=== PATIENT | female | born 1940 | race Caucasian/White ===

== ENCOUNTER → 2018-11-17 | Outpatient (REF) | payer MEDICARE ==
[2018-11-17 11:44] LABS: HEMATOCRIT 43.4 % (37.0-47.0); HEMOGLOBIN 14.2 g/dl (12.0-16.0); IMMATURE GRANULOCYTES 1.4 % (0.0-5.0); MEAN CORPUSCULAR HGB 31.1 pG CALC (26.0-32.0); MEAN CORPUSCULAR HGB CONC 32.7 g/L CALC (32.0-36.0); NEUT# 9.18 thou/uL (2.00-7.15); RED BLOOD COUNT 4.57 mill/uL (4.20-5.60); RED CELL DISTRI WIDTH 12.9 % (11.5-15.5)
[2018-11-17 12:19] LABS: ALBUMIN 3.9 g/dL (3.2-5.0); ALKALINE PHOSPHATASE 62 u/l (38-126); ANION GAP 14 (6-22 (CALC)); BILIRUBIN, TOTAL 0.6 mg/dL (0.0-1.4); BUN 22 mg/dL (8-23); BUN/CREATININE RATIO 31 (12-20 (CALC)); CARBON DIOXIDE 26 mmol/l (22-30); CHLORIDE 102 mmol/l (95-108); CREATININE 0.7 mg/dL (0.5-1.0); GFR > 60 ML/MIN (>=60 (CALC)); GFR FOR AFR.AMER. > 60 ML/MIN (>=60 (CALC)); POTASSIUM 4.1 mmol/l (3.5-5.1); SGOT/AST 15 u/l (9-36); SODIUM 137 mmol/l (137-146); TOTAL PROTEIN 6.8 g/dL (6.3-8.2)
== END | disposition home or self-care (01) ==
LOC: LAB 11:11
PROVIDERS: ATTEND Internal Medicine
DX: J30.89 Other allergic rhinitis (principal)

== ENCOUNTER 2020-02-06 11:52 | Observation (INO) | payer MEDICARE ==
[~2020-02-06] VITALS: Ht 162.6 cm; Wt 112.0 kg
--- NOTE | 2020-02-06 12:20 | NUR ---
MOVED TO STRETCHER USING SHEET. PT REPORTS PAIN IN LOWER BACK AND RIGHT LEG RESULTING IN UNABLE TO WALK TO CAR TODAY. PT ASSISTED TO GROUND BY FAMILY AND EMS CALLED. PT CHANGED TO GOWN. MONITORS IN PLACE. PT AO X 3. SKIN PINK WARM AND DRY. MOVES ALL EXTREMITIES.
--- NOTE | 2020-02-06 12:31 | NUR ---
PT MEDICATED FOR PAIN. TAKEN VIA STRETCHER TO XRAY
[2020-02-06 12:39] LABS: HEMOGLOBIN 12.3 g/dl (12.0-16.0); IMMATURE GRANULOCYTES 0.2 % (0.0-5.0); MEAN CELL VOLUME 97.1 fL CALC (80.0-100.0); MEAN CORPUSCULAR HGB 32.5 pG CALC (26.0-32.0); MEAN CORPUSCULAR HGB CONC 33.4 g/dL CAL (32.0-36.0); NEUT# 3.25 thou/uL (2.00-7.15); RED BLOOD COUNT 3.79 mill/uL (4.20-5.60); RED CELL DISTRI WIDTH 13.1 % (11.5-15.5)
--- NOTE | 2020-02-06 12:54 | NUR ---
PT RETURNED FROM XRAY. RESTING ON STOMACH IN POSITION OF COMFORT.
[2020-02-06 13:02] LABS: ANION GAP 9 (6-22 (CALC)); BUN 18 mg/dL (8-23); BUN/CREATININE RATIO 26 (12-20 (CALC)); CARBON DIOXIDE 29 mmol/l (22-30); CHLORIDE 104 mmol/l (95-108); CREATININE 0.7 mg/dL (0.5-1.0); GFR > 60 ML/MIN (>=60 (CALC)); GFR FOR AFR.AMER. > 60 ML/MIN (>=60 (CALC)); POTASSIUM 3.7 mmol/l (3.5-5.1); SODIUM 138 mmol/l (137-146)
[2020-02-06 13:10] LABS: HEMATOCRIT 36.8 % (37.0-47.0)
--- NOTE | 2020-02-06 13:56 | NUR ---
PT COMPLETELY MISSED BEDPAN. UNABLE TO OBTAIN URINE SPECIMEN
--- NOTE | 2020-02-06 14:49 | NUR ---
STRAIGHT CATH PERFORMED WITH STERILE TECHNIQUE. TOLERATED WELL. URINE SPECIMEN OBTAINED.
[2020-02-06] MEDS ORDERED: CITALOPRAM40 MG PO (15:00)
[2020-02-06] MEDS ORDERED: OXYBUTYNIN CHLO15 MG PO (15:00)
[2020-02-06 15:02] LABS: URINE BILIRUBIN - DIPSTICK NEGATIVE (NEGATIVE); URINE BLOOD DIPSTICK MODERATE (NEGATIVE); URINE COLOR YELLOW; URINE GLUCOSE - DIPSTICK NEGATIVE (NEGATIVE); URINE KETONE NEGATIVE (NEGATIVE); URINE LEUK ESTERASE NEGATIVE (NEGATIVE); URINE NITRITE - DIPSTICK NEGATIVE (Negative); URINE PH 7.5 (4.5-8.0); URINE PROTEIN - DIPSTICK NEGATIVE (NEG-TRACE); URINE SPECIFIC GRAVITY 1.015
[2020-02-06] MEDS ORDERED: [UNRECOGNIZED DRUG - OTHER] PO (15:02)
[2020-02-06] MEDS ORDERED: LEVOTHYROXINE PO (15:02)
[2020-02-06] MEDS ORDERED: KETOCONAZOLE2 % EX (15:03)
[2020-02-06] MEDS ORDERED: ADVAIR DISK1 INH (15:03)
[2020-02-06] MEDS ORDERED: METOPRL/HCTZ1 TA1 PO (15:04)
[2020-02-06] MEDS ORDERED: TAMOXIFEN CITRA20 MG PO (15:04)
[2020-02-06 15:10] LABS: URINE SQUAMOUS EPITHELIAL CELL FEW EPI/hpf (0-FEW); URINE WBC 0-2 WBC/hpf (0-5)
--- NOTE | 2020-02-06 15:41 | NUR ---
PT ATTEMPTED TO STAND WITH THREE PERSON ASSIST. PT UNABLE TO BEAR WEIGHT ON RIGHT LEG. RETURNED TO STRETCHER. POSITIONED FOR COMFORT
--- NOTE | 2020-02-06 16:45 | NUR ---
PT RESTING ON STRETCHER AWAITING ADMISSION
--- NOTE | 2020-02-06 17:52 | NUR ---
PT GIVEN DINNER TRAY
--- NOTE | 2020-02-06 18:45 | NUR ---
MED SURG UNABLE TO TAKE REPORT AT THIS TIME
--- NOTE | 2020-02-06 19:00 | NUR ---
REPORT GIVEN TO CERTIFIED OPHTHALMIC SURGICAL ASSISTANT
--- NOTE | 2020-02-06 19:15 | NUR ---
PT. TAKEN TO MO FLOOR VIA STRETCHER, NO C/O.
--- NOTE | 2020-02-06 19:28 | NUR ---
ADMISSION ASSESSMENT COMPLETED. NO DISTRESS NOTED; RESP. EVEN AND UNLABORED. EDUCATED NEONATAL CRITICAL CARE NURSE LIGHT, POC, AND ROOM; VERBALIZES UNDERSTANDING. PT. DENIES NEEDS FOR PAIN MEDICATION AT THIS TIME. BRUISING NOTED TO LEFT BUTTOCK AND LOWER BACK; SKIN INTACT. GOWN CHANGED AND CARLY CARE PROVIDED.PUREWIC PLACED AT THIS TIME. SCD'S APPLIED TO BLE. ENCOURAGED TO CALL FOR ANY NEEDS. CALL LIGHT IS IN REACH. WILL CONTINUE TO MONITOR.
[2020-02-06 19:50] VITALS: BP 105/54
--- NOTE | 2020-02-06 21:29 | NUR ---
PT. C/O RIGHT HIP/LOWER BACK PAIN 03/09 AND MEDICATED WITH ORDERED LORTAB, WILL REASSESS. PO FLUIDS OFFERED. CALL LIGHT IS IN REACH.
--- NOTE | 2020-02-07 | NUR ---
RESTING IN BED WITH NO DISTRESS NOTED. DENIES NEEDS/PAIN. ENCOURAGED TO CALL FOR ANY NEEDS. CALL LIGHT IS IN REACH.
[2020-02-07 04:00] VITALS: BP 124/55
--- NOTE | 2020-02-07 05:05 | NUR ---
RESTING IN BED WITH NO DISTRESS NOTED; DENIES NEEDS/PAIN. ENCOURAGED TO CALL FOR ANY NEEDS.
[2020-02-07 08:00] VITALS: BP 121/67
--- NOTE | 2020-02-07 09:00 | NUR ---
PT IS AWAKE, ALERT, ORIENTED X 3. LUNGS CLEAR, RA. PAIN TO LOWER BACK, MEDICATED FOR SAME. PT IN NO DISTRESS, OFFERS NO COMPLAINTS.
--- NOTE | 2020-02-07 13:00 | NUR ---
PT SEEN BY DR CROFT AND MONICA KOLB THIS MORNING, MRI HAS BEEN ORDERED OF LOWER BACK FOR FURTHER EVALUATION OF PAIN SOURCE.
--- NOTE | 2020-02-07 15:14 | NUR ---
Attempted eval - patient has gone to MRI We will attempt again this PM or in AM
[2020-02-07 16:19] VITALS: BP 148/99
--- NOTE | 2020-02-07 17:15 | NUR ---
PT WITH PHYSICAL THERAPY WAS ABLE TO STAND, TOLERATED WITH MODERATE DISCOMFORT. IV FOUND DISLODGED, RESTARTED. ZOFRAN PROVIDED FOR RELIEF OF NAUSEA. AT BEDSIDE.
[2020-02-07 18:58] VITALS: BP 112/74
--- NOTE | 2020-02-07 19:53 | NUR ---
ASSESSMENT COMPLETED. IV SITE PATENT AND SL. PT. CONTINUES TO C/O NAUSEA. HAS SEEN EKG OBTAINED AND NEW ORDERS RECEIVED FOR ONE TIME COMPAZINE, WILL ADMINISTER. SCD'S TO BLE. DENIES NEEDS FOR PAIN MEDS AT THIS TIME. DECLINES ADVAIR INHALOR. ENCOURAGED TO CALL FOR ANY NEEDS.
--- NOTE | 2020-02-08 | NUR ---
PT. RESTING IN BED WITH EYES CLOSED AND AROUSES EASILY. DENIES NEEDS. CALL LIGHT IS IN REACH.
[2020-02-08 04:03] VITALS: BP 147/73
--- NOTE | 2020-02-08 04:08 | NUR ---
VSS. NO DISTRESS NOTED;DENIES NEEDS/PAIN OR NAUSEA. PO FLUIDS OFFERED. PUREWIC EMPTIED. CALL LIGHT IS IN REACH.
--- NOTE | 2020-02-08 07:34 | NUR ---
RECIEVED REPORT FROM CHARLES ALFARO. PT RESTING IN LOWER SEMI FOWLERS POSITION UPON ENTERING ROOM. INTRODUCED SELF TO PT AND DISCUSSED POC. RESPIRATIONS RE EVEN AND UNLABORED AT THIS TIME.PT DENIES ANY PAIN OR DISCOMFORTS AT THIS TIME. ALL SAFTEY PRECAUTIONS IN PLACE WITH CALL LIGHT IN REACH. WILL CONTINUE TO MONITOR
[2020-02-08 09:10] VITALS: BP 135/63
--- NOTE | 2020-02-08 09:10 | NUR ---
ASSESSMENT AND VITALS OBTAINED AT THIS TIME. PT IS A/O X3 AND A MAX ASSIST.BP 135/63, HR 85, O2 90% ON ROOM AIR. RESPIRATIONS ARE EVEN AND UNLABORED, PT DENIES ANY SOB. LUNG SOUNDS ARE CLEAR. HEART RHYTHM IS NORMAL. BOWEL SOUNDS ARE HYPOACTIVE, LAST REPORTED BM 02/07/20. RADIAL PULSES ARE STRONG WITH NORMAL CAPILLARY REFILL. PEDAL PULSES ARE WEAK, CAPILLARY REFILL NORMAL. SCDS APPLIED. PT REQUESTED TO REMOVE SOCKS, STATING "THEY GET TOO HOT WITH THEM ON" PT REPORTS A 7/10 PAIN IN RIGHT HIP AT THIS TIME, LORTAB GIVEN WITH MORNING MEDS. IV FLUSHED AT THIS TIME, SITE APPEARS HEALTHY AND PATENT. PURE WICK IN PLACE.COVID 19 SWAB ORDERED, SWAB COMPLETED AT THIS TIME. SWAB TAKEN TO LAB BY [facility] .PT DENIES ANY OTHER PAIN OR DISCOMFORTS AT THIS TIME. ALL SAFTEY PRECAUTIONS IN PLACEW ITH CALL LIGHT IN REACH. WILL CONTIUE TO MONITOR
--- NOTE | 2020-02-08 09:33 | NUR ---
COVID19 NASAL SWAB COLLECTED BY [facility] AND SENT TO LAB AT THIS TIME.
--- NOTE | 2020-02-08 11:01 | NUR ---
PHYSICAL THERAPY AT BEDSIDE WORKING WITH PATIENT.
--- NOTE | 2020-02-08 12:15 | NUR ---
SEEN PT TDA AND THEREX. SHE WAS OFFERED MIN A FROM SUPINE TO SIT AND SIT<>STAND. STANDING TOLERANCE WAS ~30 SECONDS THEN PT HAD TO REST AND SIT DUE TO BACK PAIN. SHE STOOD UP AGAIN AND FOR ~30 SEC AND STATES SHE WANTED TO GET BETTER BUT COULD NOT WALK TODAY. PT WAS ASSISTED WITH MIN A BACK TO BED AND INSTRUCTED ON LB EXERCISES. SHE PERFORMED LOW TRUNK ROTATION X 3 SH X 10 REPS AND SUPINE HAMSTRING STRETCH WITH SHEET ON FOOT X 10-15 SH X 3 SETS BILAT. PT STATES SHE FELT BETTER FROM THE EXERCISES. SHE WAS INSTRUCTED TO PERFORM THEM AT LEAST 3X A DAY. PT AGREED. HER AMPAC SCORE TODAY IS 12 POINTS.
--- NOTE | 2020-02-08 12:23 | NUR ---
DR. CROFT AND PILLO, ANRP AT PT BEDSIDE.
--- NOTE | 2020-02-08 13:08 | NUR ---
PT RESTING IN SEMI FOWLERS POSITION WATCHING TV. RESPIRATIONS ARE EVEN AND UNLABORED WITH NO SIGNS OF DISTRESS. AT BEDSIDE AT THIS TIME. PURE WICK CONTAINER EMPTIED, 650 EMPTIED.URINE IS CLOUDY AND KIMMIE PURE WICK STILL REMAINS IN PLACE. PT DENIES ANY PAIN OR DISCOMFORTS AT THIS TIME. ALL SAFTEY PRECAUTIONS IN PLACE WITH CALL LIGHT IN REACH. WILL CONTINUE TO MONITOR
[2020-02-08 15:21] VITALS: BP 139/66
--- NOTE | 2020-02-08 16:00 | NUR ---
PT RESTING IN SEMI FOWLERS POSITION WATCHING TV WITH AT BEDSIDE.RESPIRATIONS ARE EVEN AND UNLABORED WITH NO SIGNS OF DISTRESS. PT DENIES ANY PAIN OR DISCOMFORTS AT THIS TIME.ALL SAFTEY PRECAUTIONS REMAIN IN PLACEW ITH CALL LIGHT IN REACH. WILL CONTINUE TO MONITOR
[2020-02-08 19:00] VITALS: BP 119/60
--- NOTE | 2020-02-08 20:20 | NUR ---
PT LAYING IN BED, OFFERED REPOSITIONING/BOOST, DENIED NEED. IV SITE PERIPHERAL TO RFA FLUSHED PATENT/APPEARS HEALTHY. PT REPORTS ITCHING TO UPPER R.INSIDE OF ARM AND UPPER BACK, MILD RASH VISUALIZED AT THIS TIME. WILL NOTIFY PHYSICIAN FOR ORDERS.
--- NOTE | 2020-02-08 20:55 | NUR ---
RECEIVED NEW ORDERS FROM PHYSICIAN FOR PT ITCHING. GLENNDRYL TO BE PROVIDED AND MONITOR FOR FURTHER SYMPTOMS AND NOTIFY DAY PHYSICIAN TOMORROW.
--- NOTE | 2020-02-08 21:35 | NUR ---
PT MEDICATED AND ASSESSMENT COMPLETED AT THIS TIME. POC DISCUSSED W/PT. VERBALIZED UNDERSTANDING. DENIES ANY OTHER NEEDS. DARK YELLOW URINE DRAINING TO CONT LOW SUCTION VIA PUREWICK. PT LOCX3 AT THIS TIME. PT MEDICATED FOR PAIN REPORTED TO R.HIP 8/10 ON PAIN SCALE.
--- NOTE | 2020-02-09 02:20 | NUR ---
PT SLEEPING, NO S/O DISTRESS NOTED. CALL LIGHT W/IN REACH.
[2020-02-09 03:35] VITALS: BP 121/67
--- NOTE | 2020-02-09 05:10 | NUR ---
PT SLEEPING, MEDICATED ORDERS PROVIDE. PUREWICK DRAINING DARK YELLOW CLOUDY URINE TO CONT LOW SUCTION.
--- NOTE | 2020-02-09 07:30 | NUR ---
REPORT RECEIVED FROM CHARLES RICHARDSON. PT RESTING IN BED SEMI FOWLERS; ALERT AND ORIENTED. DENIES PAIN. RESPIRATIONS EVEN AND UNLABORED ON ROOM AIR. PURWIK CATHETER DRAINING CLOUDY, DARK YELLOW URINE. IV SITE APPEARS HEALTHY AND FLUSHES. PLAN OF CARE REVIEWED. PT ENCOURAGED TO VERBALIZE CONCERNS. STATES UNDERSTANDING. SAFETY MEASURES IN PLACE. CALL LIGHT WITHIN REACH.
[2020-02-09 07:58] VITALS: BP 137/81
--- NOTE | 2020-02-09 08:20 | NUR ---
This patient would benefit from OT at the next level of care. Our department is currently without OT coverage. This patient will need help from OT for endurance training/ energy conservation and assistance with ADLs to improve independence
--- NOTE | 2020-02-09 09:00 | NUR ---
REQUESTING LORTAB FOR MILD RIGHT HIP PAIN; GIVEN WITH AM MEDS. SCDS INTACT TO BLE. PT ENCOURAGED TO REPOSITION HERSELF IN BED.
--- NOTE | 2020-02-09 10:41 | NUR ---
PT AT BEDSIDE.
--- NOTE | 2020-02-09 11:17 | NUR ---
AUTO SERVICE WRITER entered room and patient was lying in bed. She was compliant and performed hamstring stretch with sheet on foot however this caused her R hip pain. She then performed ankle pumps 3x10 and SAQ 2x10. She then transferred with min assist to sitting on EOB where she performed bilateral seated knee ext 3x10 and hamstring curls 2x10 before transferring to standing with mod assist. She was able to static stand for 3mins before requiring rest. Patient states she does not feel confident standing and she is afraid of falling. Pt then laid back in bed supine where AUTO SERVICE WRITER performed bilateral hamstring stretch however she c/o of R hip pain even during stretching of LLE. Bed mobility training was then performed with emphasis on patient maintaining proper spine alignment as she tends to lay in bed crooked. She was then left with no questions or concerns other than figuring out where she is going after hospital.
--- NOTE | 2020-02-09 11:46 | NUR ---
FIRST DOSE OF SOLUMEDROL GIVEN; PT EDUCATED ON MED AND INDICATION.
[2020-02-09 15:29] VITALS: BP 146/53
[2020-02-09 18:45] VITALS: BP 131/78
--- NOTE | 2020-02-09 19:35 | NUR ---
PT AWAKE, PUREWICK DRAINING DARK CLEAR YELLOW URINE TO CON/LOW SUCTION. PT LOCX3. C/O HEADACHE AND HIP PAIN 8/10 AT THIS TIME. PT PROVIDED BOTTLED WATER/REQUEST. WILL FOLLOW-UP WITH PAIN MEDICATION AND PM MEDICATIONS ORDERS PROVIDE.
--- NOTE | 2020-02-09 19:50 | NUR ---
PT MEDICATED FOR PAIN 8/10 ON PAIN SCALE HEADACHE AND R.HIP. PT REFUSES SCD PLACEMENT STATING "IF I GET A BLOOD CLOT, IT'S OKAY." PT APPEARS IN [employer] SPIRITS OTHERWISE, GREETED ME WITH A SMILE. PM MEDICATIONS ADMINISTERED AT THIS TIME. PT DENIES ITCHING, BUT WAS ASKED TO REPORT ANY FURTHER ITCHING OR IRRITATION OR NEW SYMPTOMS. VERBALIZED UNDERSTANDING. CALL LIGHT W/IN REACH.
--- NOTE | 2020-02-09 22:15 | NUR ---
PT AWAKE I ENTERED THE ROOM. REPORTS PAIN IMPROVING TO 3/10 ON PAIN SCALE. PT DENIES ANY OTHER NEEDS. REMINDED PT OF CALL LIGHT FOR NEEDS THEY ARISE.
[2020-02-10 04:20] VITALS: BP 153/80
--- NOTE | 2020-02-10 04:38 | NUR ---
PT SLEEPING AT THIS TIME. NO S/O DISTRESS NOTED. CALL LIGHT AT SIDE.
--- NOTE | 2020-02-10 05:39 | NUR ---
PT SLEEPING, AWOKE TO MY ENTERING THE ROOM. PT MEDICATED ORDERS PROVIDE.
--- NOTE | 2020-02-10 07:35 | NUR ---
REPORT RECEIVED FROM CHARLES RICHARDSON. PT RESTING IN BED SEMI FOWLERS; ALERT AND ORIENTED. C/O MILD LOWER BACK AND NECK PAIN; REQUESTS LORTAB WITH AM MEDS. RESPIRATIONS EVEN AND UNLABORED ON ROOM AIR. PLAN OF CARE REVIEWED. PT ENCOURAGED TO VERBALIZE CONCERNS. STATES UNDERSTANDING. SAFETY MEASURES IN PLACE. CALL LIGHT WITHIN REACH.
[2020-02-10 07:50] VITALS: BP 121/71
--- NOTE | 2020-02-10 11:20 | NUR ---
PT AT BEDSIDE.
--- NOTE | 2020-02-10 11:40 | NUR ---
Upon entering room pt. verified name and . She is found resting in bed and agrees to participate in therapeutic exercises. With HOB elevated pt. instructed on and performed supine heel slides x 5 repetitions, ankle pumps x 10 repetitions, active assisted hip abduction x 5 repetitions, quad. setting x 10 repetitions, passive R hamstring stretch x 1 repetitions followed by pt. performing R hamstring stretch with gait belt x 2 repetitions. Pt. performed the exercises within her comfort, no facial grimacing observed. Pt. left resting comfortably in bed without questions/concerns and with spouse in room. AMPAC score unchanged.
[2020-02-10 15:18] VITALS: BP 116/70
[2020-02-10] MEDS ORDERED: LORTAB5 PO (15:21)
[2020-02-10] MEDS ORDERED: MEDDOSEPAK PO (15:21)
--- NOTE | 2020-02-10 16:00 | NUR ---
PT RESTING IN BED ALERT AND ORIENTED. NO REQUESTS OR CONCERNS AT THIS TIME. PARTIAL BATH GIVEN AND PURWIK CATHETER REPLACED. CALL LIGHT WITHIN REACH.
--- NOTE | 2020-02-10 16:55 | NUR ---
IV site discontinued, cath intact. No edema , no redness, voices no discomfort.
--- NOTE | 2020-02-10 17:33 | NUR ---
Discharge instructions given. Patient verbalizes understanding of same. Discharged in stable condition via [facility] to [facility] with [facility]. All belongings sent with pt.
--- NOTE | 2020-02-10 17:38 | NUR ---
REPORT CALLED TO ADIS AT [facility] [phone]
== END 2020-02-10 17:30 ==
LOC: ED 11:52 → ED-I 16:17 → ED 16:21 → MS2 16:22 → ED-I 16:22 → MS2 17:56
PROVIDERS: Student in an Organized Health Care Education/Training Program; ADMIT Internal Medicine; ATTEND Internal Medicine
DX: M47.26 Other spondylosis with radiculopathy, lumbar region (principal); M54.41 Lumbago with sciatica, right side; M48.061 Spinal stenosis, lumbar region without neurogenic claudication; I10 Essential (primary) hypertension; Z91.81 History of falling; Z11.59 Encounter for screening for other viral diseases
CPT/HCPCS: G0378